=== PATIENT | female | born 1970 | race Caucasian/White ===

== ENCOUNTER 2018-11-28 09:36 | Inpatient (IN) ==
[2018-11-28] MEDS ORDERED: *HR* LORazepam 2 MG/ML VIAL ONE (09:46)
[2018-11-28] MEDS ORDERED: methylPREDNISolone 125 MG/2 ML VIAL IVP ONE (09:53)
[2018-11-28] MEDS ORDERED: Ipratropium/Albuterol Neb 3 ML IH ONE (09:53)
[2018-11-28] MEDS ORDERED: *HR* LORazepam 2 MG/ML VIAL IVP ONE (09:53)
--- NOTE | 2018-11-28 09:59 | Emergency Department Note ---
Disposition Clinical Impression: Acute exacerbation of chronic obstructive airways disease COPD (chronic obstructive pulmonary disease) Qualifiers: COPD type: COPD with acute exacerbation Qualified Code(s): J44.1 - Chronic obstructive pulmonary disease with (acute) exacerbation Disposition: Admitted As Inpatient Condition: Fair Time of Disposition: 13:37 SOB HPI - General Stated Complaint: KYLAH Time Seen by Provider: 11/28/18 09:41 Source: patient, EMS Mode of arrival: EMS Limitations: no limitations Nursing Notes Reviewed: Yes Vital Signs Reviewed: Yes - History of Present Illness Patient is a 48-year-old female that was recently admitted to a [facility] 11/23- 11/27/18 for COPD exacerbation, sent home with three more days of levaquin and home oxygen. She became acutely short of breath this morning and reports by EMS for her symptoms. When medics arrived at the house, she had just had an albuterol nebulizer and had some redness in her chest, so they gave 10mg IV decadrone and benadryl due to concern for allergic reaction to the albuterol. Pt looks dyspneic on exam, is tachypneic and using accessory muscle to breathe. She is able to speak in full sentences and is maintain saturation in low 90's. Pt was started on BiPAP and so history was abbreviated initially. After pt's arrived he explained that pt initially reported to [facility] on 11/23 with complaints of increasing SOB and fever. She was admitted for several days, but pt's reports that she never really got better. He reports that she had an albuterol nebulizer this morning and that's when she became acutely short of breath and he called the squad. He does report she was taking her home medications including 20mg steroids and levaquin but they do not appear to be helping. - Related Data Home Medications Medication Instructions Recorded Confirmed Montelukast [Singulair] 10 mg PO DAILY 06/06/16 11/28/18 Hydrochlorothiazide [Microzide] 12.5 mg PO DAILY 11/22/18 11/28/18 Albuterol Neb [Proventil Neb] 2.5 mg IH Q6H PRN 11/28/18 11/28/18 Temazepam [Restoril] 30 mg PO HS PRN 11/28/18 11/28/18 Tiotropium Br/Olodaterol HCl 2 puff IH DAILY 11/28/18 11/28/18 [Stiolto Respimat Inhal [place]] hydrOXYzine pamoate [HydrOXYzine 25 mg PO Q6H PRN 11/28/18 11/28/18 Pamoate] Previous Rx's Medication Instructions Recorded ALPRAZolam [Xanax 0.5 MG Tablet] 0.5 mg PO Q6H PRN 3 Days #12 tablet 11/27/18 Budesonide/Formoterol 160/4.5 2 puff IH BIDR #1 inh 11/27/18 [Symbicort 160/4.5] Lactobacillus [Culturelle] 1 each PO BID #6 cap.sprink 11/27/18 levoFLOXacin [Levaquin] 750 mg PO DAILY #3 tablet 11/27/18 predniSONE [PredniSONE] 10 mg PO BIDWM #6 tablet 11/27/18 Allergies Allergy/AdvReac Type Severity Reaction Status Date / Time No Known Allergies Allergy Verified 11/23/18 23:19 Review of Systems: All systems ED: reviewed and negative except as stated. Constitutional: Denies: fever, chills ENT ED: Denies: ear pain, Reports: throat pain, nasal congestion Cardiovascular: Denies: chest pain, palpitations Respiratory: Reports: cough, dyspnea Gastrointestinal: Denies: abdominal pain, nausea, vomiting, diarrhea, constipa tion Genitourinary: Denies: urgency, dysuria, frequency Musculoskeletal: Denies: back pain, neck pain Integumentary: Denies: rash, abrasion Neurological: Denies: weakness, numbness, paresthesias Reports: headache Psychiatric: Denies: anxiety, depression Endocrine: Denies: fatigue, heat or cold intolerance Hematological/Lymphatic: Denies: easy bleeding, easy bruising Allergic/Immunologic: Denies: facial swelling, urticaria Past Medical History - Past Medical History Medical history: Reports: COPD, hypertension, other Psychiatric history: Reports: no psych history 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 Well developed, well nourished. Able to converse in full sentences. Head: atraumatic, normocephalic. ENT: No conjunctival injection, no scleral icterus. PERRLA. EOMI. Oropharynx non- erythematous. mucous membranes tacky. Neuro: No focal deficits, no speech deficit, no facial droop, mentating well. BUE/BLE Str 5/5. Pulm: Lungs have diffuse wheezes in all lung trejo without evidence of consolidation, ronchi. Cardio: Tachycardia, no m/r/g evident on auscultation. Chest not tender to palpation. Abd: Soft, non-distended. Normoactive bowel sounds. Non-tender to palpation. No guarding. Non rigid. Extremities: Radial pulses 2+ crispin, dorsalis pedis/posterior tibialis 2+ crispin. No LE edema. No cyanosis, clubbing. Skin: warm, dry, intact. No rashes. Psych: Appropriate mood and affect. Answers questions appropriately. Cooperative with exam. - General Limitations: no limitations General appearance: alert Course Course Narrative: With pt's recent admission and discharge, it appears as if she has never had resolution of her symptoms and that today's incidence of SOB is a continuation of her disease process. Suspect admission for further treatment. Will obtain EKG, CXR, CBC, BMP, BNP. Will administer [address] pt on BiPAP to help with breathing. - Reevaluation(s) Reevaluation #1: After administration of 3 duonebs and pt had been on BiPAP, her heart rate had improved into 120s, respiratory rate had improve into high 20's and lung trejo sounded improved although she still had mild wheezes diffusely. Pt was still feeling dyspneic. Time: 10:47 Reevaluation #2: Hospitalist was concerned for PE, CTA chest was ordered and failed to demonstrate PE. Time: 13:36 Vital Signs Temperature 97.8 F 11/28/18 09:40 Pulse Rate 135 11/28/18 09:40 Respiratory Rate 24 11/28/18 09:40 Blood Pressure 192/121 11/28/18 09:40 O2 Sat by Pulse Oximetry 95 11/28/18 09:40 Temperature 97.8 F 11/28/18 09:40 Pulse Rate 124 11/28/18 12:20 Respiratory Rate 24 11/28/18 12:20 Blood Pressure 134/78 11/28/18 11:31 O2 Sat by Pulse Oximetry 99 11/28/18 12:20 Oxygen Delivery Oxygen Delivery Bipap Shortness of Breath/Dyspnea - [facility] Narrative Medical decision making narrative: Pt presented with acute development of shortness of breath. She was placed on bipap and given 3 duonebs. These improved her diffuse wheezing somewhat, but did not resolve it completely. She was less tachycardic in the 120's and was less tachypneic and had RR in the low 20's at time of disposition. She was admitted to hospitalist, Dr. Kwon, who agreed to accept her to his service. Pts respiratory status improved during the course of her ED treatment, although she continued to require BiPAP support. Patient was given an opportunity to ask questions at bedside and all of their concerns were addressed. Patient verbalized understanding and agreement with plan of care. Pt remained stable while in the department. - Medical Records Medical records reviewed: Yes I reviewed the patient's medical records. - Lab Data Lab results reviewed: Yes I reviewed the patient's lab results. Result diagrams: 11/28/18 10:16 11/28/18 10:16 Lab Results 11/28/18 11/28/18 11/28/18 Range/Units 10:16 10:16 10:16 WBC 8.7 (4.3-11.1) K/mcL RBC 4.77 (3.82-4.97) M/mcL Hgb 15.5 H (11.5-15.4) g/dL Hct 44.7 (35.3-44.9) % MCV 93.7 (83.0-100.0) fL MCH 32.5 (28.0-33.3) pg MCHC 34.7 (31.6-35.5) g/dL RDW 12.2 (11.5-14.5) % Plt Count 198 (140-400) K/mcL MPV 9.3 L (9.4-12.4) fL Immature Gran % 2.2 (0-4) % Seg Neutrophils % 80.1 % Lymphocytes % 10.8 % Monocytes % 6.2 % Eosinophils % 0.0 % Basophils % 0.7 % Neutrophils # 7.0 (1.6-8.9) K/mcL Lymphocytes # 0.9 (0.6-4.6) K/mcL Monocytes # 0.5 (0.0-1.3) K/mcL Eosinophils # 0.0 (0.0-0.6) K/mcL Basophils # 0.1 (0.0-0.2) K/mcL Sodium 140 (136-145) mEq/L Potassium 4.1 (3.5-5.1) mEq/L Chloride 102 (98-107) mEq/L Carbon Dioxide 32 H (23-29) mEq/L BUN 27 H (6-20) mg/dL Creatinine 0.67 (0.60-1.20) mg/dL Est GFR ( Amer) > 60 (> 60) Est GFR (Non-Af Amer) > 60 (> 60) BUN/Creatinine Ratio 40 H (6-26) Glucose 162 H (70-105) mg/dL Calculated Osmolality 299 (280-300) Lactic Acid 1.0 (0.5-2.2) mmol/L Calcium 9.2 (8.6-10.3) mg/dL Magnesium 2.5 (1.6-2.6) mg/dL Troponin I < 0.03 (< 0.04) ng/mL B-Natriuretic Peptide (Less than 100) pg/mL 11/28/18 Range/Units 10:16 WBC (4.3-11.1) K/mcL RBC (3.82-4.97) M/mcL Hgb (11.5-15.4) g/dL Hct (35.3-44.9) % MCV (83.0-100.0) fL MCH (28.0-33.3) pg MCHC (31.6-35.5) g/dL RDW (11.5-14.5) % Plt Count (140-400) K/mcL MPV (9.4-12.4) fL Immature Gran % (0-4) % Seg Neutrophils % % Lymphocytes % % Monocytes % % Eosinophils % % Basophils % % Neutrophils # (1.6-8.9) K/mcL Lymphocytes # (0.6-4.6) K/mcL Monocytes # (0.0-1.3) K/mcL Eosinophils # (0.0-0.6) K/mcL Basophils # (0.0-0.2) K/mcL Sodium (136-145) mEq/L Potassium (3.5-5.1) mEq/L Chloride (98-107) mEq/L Carbon Dioxide (23-29) mEq/L BUN (6-20) mg/dL Creatinine (0.60-1.20) mg/dL Est GFR ( Amer) (> 60) Est GFR (Non-Af Amer) (> 60) BUN/Creatinine Ratio (6-26) Glucose (70-105) mg/dL Calculated Osmolality (280-300) Lactic Acid (0.5-2.2) mmol/L Calcium (8.6-10.3) mg/dL Magnesium (1.6-2.6) mg/dL Troponin I (< 0.04) ng/mL B-Natriuretic Peptide 36 (Less than 100) pg/mL - Radiology Data Radiology results reviewed: Yes I reviewed the patient's radiology results. Chest X-Ray 11/28/18 09:53 IMPRESSION: Minimal left basilar atelectasis or pneumonitis. D/ / Elie Kohler MD / Elie Kohler MD Interpreting Provider: Elie Kohler MD - EKG Data EKG attestation: Yes I reviewed and interpreted this EKG. EKG results narrative: HR 126, rhythm sinus tachycardia, axis normal. MS 125, QRS 92, QTc 443. No evidence of ST elevation or depression. No evidence of LVH. Attestation Statement - Attestation Attestation: I, Augustus Mackenzie, examined this patient and my medical decision-making was reviewed with the HONING MACHINE SET UP OPERATOR/PA/Advanced Practice Nurse/Resident Physician. I agree with the documented findings, disposition and treatment plan as described except to the extent set forth below. 48-year-old female presents emergency Department with concerns of respiratory distress. Patient was recently admitted to [facility] where she was treated for 4 days for COPD exacerbation. Patient states she was discharged from the hospital yesterday but continued to have shortness of breath. Patient states she has had progressive worsening since that time. She denies fever, history of blood clot or DVT. No other recent trauma. Patient has wheezing the bilateral posterior lung trejo on exam. She is placed on BiPAP with DuoNeb immediately after initial evaluation with significant improvement. CTA of the chest did not show evidence of acute PE. Patient will be admitted to the hospitalist for further care and evaluation.
[2018-11-28 10:32] LABS: Basophils # 0.1 K/mcL (0.0-0.2); Basophils % 0.7 %; Hematocrit 44.7 % (35.3-44.9); Hemoglobin 15.5 g/dL (11.5-15.4); Immature Granulocytes % 2.2 % (0-4); Lymphocytes # 0.9 K/mcL (0.6-4.6); Lymphocytes % 10.8 %; Mean Corpuscular HGB Conc 34.7 g/dL (31.6-35.5); Mean Corpuscular Hemoglobin 32.5 pg (28.0-33.3); Mean Corpuscular Volume 93.7 fL (83.0-100.0); Mean Platelet Volume 9.3 fL (9.4-12.4); Monocytes # 0.5 K/mcL (0.0-1.3); Monocytes % 6.2 %; Platelet Count 198 K/mcL (140-400); Red Blood Count 4.77 M/mcL (3.82-4.97); Red Cell Distribution Width 12.2 % (11.5-14.5); Segmented Neutrophils % 80.1 %
[2018-11-28 10:49] LABS: BUN/Creatinine Ratio 40 (6-26); Blood Urea Nitrogen 27 mg/dL (6-20); Calcium 9.2 mg/dL (8.6-10.3); Carbon Dioxide 32 mEq/L (23-29); Chloride 102 mEq/L (98-107); Glucose 162 mg/dL (70-105); Osmolality,Calculated 299 (280-300); Potassium 4.1 mEq/L (3.5-5.1); Sodium 140 mEq/L (136-145); Troponin I < 0.03 ng/mL (< 0.04); eGFR For Non-African Americans > 60 (> 60)
[2018-11-28] MEDS ORDERED: Isovue-370 500 ML BOTTLE IVP ONE (11:33)
--- NOTE | 2018-11-28 12:03 | Internal Med History&Physical ---
Date of Encounter: 11/28/18 Time of Encounter: 11:56 Internal Medicine - H&P: HPI Chief complaint: SOB Admitted From: Emergency Dept History of present illness: Cecy Hernandez is a 48 F w hx smoker, COPD on 2L, HTN, DM2, low TSH, who p/w SOB. Pt states she was hospitalized for the last 4 days at [facility] and was discharged yesterday. She says her symptoms never really improved other than the fevers she reported prior to admission there on 11/24. She's been unable to catch her breath and coughing up more sputum which is now yellow. She says her WBC at [facility] was elevated, and as it improved, and her O2 sats were stable on 2L, she was discharged despite still being symptomatic. However, she tried to rest/recover at home but was unable to feel any better, unable to eat/drink due to feeling too short of breath, and actually felt too ill to smoke cigarettes, of which she usually smokes 1-1.5 packs daily. She denies any chest pain and says her sy mptoms were slowly progressive over a few days, not sudden onset. Review of records indicates that patient hospitalized from 11/24-11/27 at [facility] for presumed COPD exacerbation. No etiology identified as CXR w/o acute process. Pt given nebs, steroids, and levaquin with improvement in symptoms, and d ischarged on home O2. Additionally, it appears she was diagnosed with DM2 while inpatient for an A1c of 8%, her TSH was suppressed to 0.17 but FT3/FT4 were wnl, and she was discharged with Xanax #12 tabs for anxiety. In the ED, pt HR 130s and with increased respiratory effort but talking in full sentences, placed on BiPAP with improvement in symptoms. Given Nebs, Solumedrol, and Ativan, and admitted. Past medical, surgical, social, and family histories reviewed and updated as below, with addition of Family History which is negative for COPD or lung cancer. Past Med Surg Social Fam HX - Past Medical History Medical history: COPD, hypertension, other Additional medical history: BOARDERLINE DM, WEARS HOME 02 AT 2LPM [place]IA [place] Psychiatric history: no psych history - Past Surgical History Additional surgical history: Tubal ligation - Social History Smoking Status: Current every day smoker Smokeless Tobacco Status: No Alcohol use: none Drug use: none Internal Medicine - H&P: Meds Montelukast [Singulair] 10 mg PO DAILY 06/06/16 [History] Hydrochlorothiazide [Microzide] 12.5 mg PO DAILY 11/22/18 [History] ALPRAZolam [Xanax 0.5 MG Tablet] 0.5 mg PO Q6H PRN 3 Days #12 tablet 11/27/18 [Rx] Budesonide/Formoterol 160/4.5 [Symbicort 160/4.5] 2 puff IH BIDR #1 inh 11/27/18 [Rx] Lactobacillus [Culturelle] 1 each PO BID #6 cap.sprink 11/27/18 [Rx] levoFLOXacin [Levaquin] 750 mg PO DAILY #3 tablet 11/27/18 [Rx] predniSONE [PredniSONE] 10 mg PO BIDWM #6 tablet 11/27/18 [Rx] Albuterol Neb [Proventil Neb] 2.5 mg IH Q6H PRN 11/28/18 [History] Temazepam [Restoril] 30 mg PO HS PRN 11/28/18 [History] Tiotropium Br/Olodaterol HCl [Stiolto Respimat Inhal [place]] 2 puff IH DAILY 11/28/18 [History] hydrOXYzine pamoate [HydrOXYzine Pamoate] 25 mg PO Q6H PRN 11/28/18 [History] Allergy/AdvReac Type Severity Reaction Status Date / Time No Known Allergies Allergy Verified 11/23/18 23:19 All Systems PM: A 10-system review of systems was performed and is negative for pertinent findings except as documented above in the HPI. - Constitutional Vitals: Temp Pulse Resp BP Pulse Ox 97.8 F 113 24 134/78 100 11/28/18 09:40 11/28/18 11:31 11/28/18 11:31 11/28/18 11:31 11/28/18 11:31 Exam: General: NAD, good eye contact, relatively well appearing and not working to breath although is currently on bipap Head: Atraumatic, normocephalic. Face symmetric Eyes: EOMI, sclerae anicteric ENT: Mucous membranes moist. Normal oral mucosa and dentition. Trachea midline. Thoracic: No visible chest wall deformities. Does have prolonged expiratory phase with diminished air movement, diffuse expiratory wheezing on forced exhalation Cardio: Normal S1 and S2, regular rhythm, tachycardiac, no murmurs. Abdomen: Soft, nontender, nondistended. Extremities: Warm, well perfused. DP pulses 2+ b/l. No clubbing, cyanosis. No edema Skin: Intact. No rashes, bruises, or ulcers Neuro: Awake, fully oriented. Good memory, concentration, attention. Speech fl uent. CN II-XII grossly intact. Strength 5/5 in b/l UE and LE Internal Med - H&P Results - Labs CBC & Chem 7: 11/28/18 10:16 11/28/18 10:16 Labs: Short CBC 11/28/18 Range/Units 10:16 WBC 8.7 (4.3-11.1) K/mcL Hgb 15.5 H (11.5-15.4) g/dL Hct 44.7 (35.3-44.9) % Plt Count 198 (140-400) K/mcL Neutrophils # 7.0 (1.6-8.9) K/mcL BMP 11/28/18 10:16 Sodium 140 Potassium 4.1 Chloride 102 Carbon Dioxide 32 H BUN 27 H Creatinine 0.67 Glucose 162 H Calcium 9.2 Cardiac Enzymes 11/28/18 Range/Units 10:16 Troponin I < 0.03 (< 0.04) ng/mL - Impressions ITS Impressions Chest X-Ray 11/28/18 09:53 IMPRESSION: Minimal left basilar atelectasis or pneumonitis. D/ / Elie Kohler MD / Elie Kohler MD Interpreting Provider: Elie Kohler MD - Summary of Assessment and Plan Summary of Assessment and Plan: Cecy Hernandez is a 48 F w hx smoker, COPD on 2L, HTN, DM2, low TSH, who p/w SOB and cough, tachycardia, recent COPD exacerbation requiring hospitalization, concerning for ongoing COPD exacerbation. COPD in acute exacerbation: unknown etiology, CXR w mild L basilar atelectasis - CTA to r/o PE given unknown etiology of COPD exacerbation in context of recent hospitalization - RVP - nebs q4h&prn - prednisone 40 daily x5d, s/p solumedrol 125 in ED - continue levaquin 750 po daily, last dose 11/30 - home inhalers Acute on chronic hypoxic respiratory failure: requiring 4L O2 to maintain sats >88% and then briefly BiPAP for work of breathing - supplemental O2, wean as able - IS - walk test prior to discharge Chronic respiratory acidosis: likely 2/2 COPD as above, will monitor Azotemia: persistent on all labs in 11/2018 and back in 07/2018, noted, will monitor Erythrocytosis: 2/2 smoker, will monitor DM2: will initiate metformin 500 bid tomorrow (CTA today as above) HTN: tomorrow resume home hctz 12.5 Smoker: nicotine patch offered Low TSH: FT3/FT4 wnl noted Anxiety: no benzos while inpatient or upon discharge PPx: lovenox FEN: regular, no MIVF Lines: PIV Consults: Code: Full Dispo: patient requires inpatient eval and management at this time. Anticipate 2-3 days. Will be homegoing
[2018-11-28] MEDS ORDERED: Nicotine 21 MG PATCH.TD24 TD PRN (12:09)
[2018-11-28] MEDS ORDERED: Ipratropium/Albuterol Neb 3 ML IH PRN (12:17)
[2018-11-28] MEDS ORDERED: Naloxone 0.4 MG/ML INJ IVP PRN (12:18)
[2018-11-28] MEDS ORDERED: Ondansetron 4 MG/2 ML VIAL IVP PRN (12:18)
[2018-11-28] MEDS ORDERED: Acetaminophen 325 MG TABLET PO PRN (12:18)
[2018-11-28 12:39] LABS: Magnesium 2.5 mg/dL (1.6-2.6)
[2018-11-28] MEDS: Ipratropium/Albuterol Neb 3 ML IH SCH ×3 (16:19→23:50)
[2018-11-28] MEDS: Budesonide/Formoterol 160/4.5 1 PUFF INH IH SCH (20:14)
[2018-11-28 21:40] LABS: Adenovirus Not Detected (Not Detect); Bordetella Pertussis Not Detected (Not Detect); Chlamydophila pneumoniae Not Detected (Not Detect); Coronavirus 229E Not Detected (Not Detect); Coronavirus HKU1 Not Detected (Not Detect); Coronavirus NL63 Not Detected (Not Detect); Coronavirus OC43 Not Detected (Not Detect); Human Metapneumovirus DETECTED (Not Detect); Human Rhinovirus/Enterovirus Not Detected (Not Detect); Influenza A Subtype 2009 H1 Not Detected (Not Detect); Influenza A Untypeable Not Detected (Not Detect); Influenza B Not Detected (Not Detect); Mycoplasma pneumoniae Not Detected (Not Detect); Parainfluenza Virus 1 Not Detected (Not Detect); Parainfluenza Virus 2 Not Detected (Not Detect); Parainfluenza Virus 3 Not Detected (Not Detect); Parainfluenza Virus 4 Not Detected (Not Detect); Respiratory Syncytial Virus Not Detected (Not Detect)
[2018-11-29] MEDS: Ipratropium/Albuterol Neb 3 ML IH SCH ×6 (03:57→23:38)
[2018-11-29] MEDS: *HR* Enoxaparin 40 MG/0.4 ML SYRINGE SQ SCH (05:14)
[2018-11-29] MEDS: Budesonide/Formoterol 160/4.5 1 PUFF INH IH SCH ×2 (07:23→19:36)
[2018-11-29] MEDS: hydroCHLOROthiazide 25 MG TABLET PO SCH (08:25)
[2018-11-29] MEDS ORDERED: levoFLOXacin 750 MG TABLET PO SCH (09:00)
[2018-11-29] MEDS ORDERED: predniSONE 20 MG TABLET PO SCH (09:00)
[2018-11-29 10:06] LABS: Hematocrit 42.7 % (35.3-44.9); Hemoglobin 14.2 g/dL (11.5-15.4); Mean Corpuscular HGB Conc 33.3 g/dL (31.6-35.5); Mean Corpuscular Hemoglobin 32.1 pg (28.0-33.3); Mean Corpuscular Volume 96.4 fL (83.0-100.0); Mean Platelet Volume 9.3 fL (9.4-12.4); Platelet Count 184 K/mcL (140-400); Red Blood Count 4.43 M/mcL (3.82-4.97); Red Cell Distribution Width 12.1 % (11.5-14.5)
[2018-11-29 10:15] LABS: BUN/Creatinine Ratio 49 (6-26); Blood Urea Nitrogen 35 mg/dL (6-20); Calcium 8.8 mg/dL (8.6-10.3); Carbon Dioxide 34 mEq/L (23-29); Chloride 102 mEq/L (98-107); Glucose 92 mg/dL (70-105); Magnesium 2.5 mg/dL (1.6-2.6); Osmolality,Calculated 300 (280-300); Potassium 3.7 mEq/L (3.5-5.1); Sodium 141 mEq/L (136-145); eGFR For Non-African Americans > 60 (> 60)
[2018-11-29] MEDS ORDERED: ALPRAZolam 0.5 MG TABLET PO PRN (12:07)
[2018-11-29] MEDS ORDERED: D5% in Water 1,000 ML IVC PRN (12:07)
[2018-11-29] MEDS ORDERED: Temazepam 15 MG CAPSULE PO PRN (12:07)
[2018-11-29] MEDS ORDERED: Dextrose Gel 15 GM/37.5 ML TUBE PO PRN ×2 (12:07)
[2018-11-29] MEDS ORDERED: *HR* Dextrose 50 % in Water (Syg) 50 ML SYRINGE IVP PRN (12:07)
--- NOTE | 2018-11-29 12:57 | Internal Med Progress Note ---
Hospitalist Progress Note - Encounter Date of Encounter: 11/29/18 Time of Encounter: 12:54 - Subjective Interval History: Patient is still significant dyspneic even on rest using accessory muscle. Oxygen 4 L by nasal cannula. Review the lab at bedside Denies fever chills nausea vomiting headache dizziness chest pain abdominal pain urinary bowel complaint - Exam Vitals: Temp Pulse Resp BP Pulse Ox 96.5 F L 92 18 133/93 98 11/29/18 11:16 11/29/18 11:16 11/29/18 11:16 11/29/18 11:16 11/29/18 11:16 Exam: General appearance: No acute distress but using accessory muscle and get out of breath while completing a sentence. Her liters oxygen by nasal cannula Head exam: Atraumatic Eye exam: EOMI, PERRLA ENT exam: Moist oral mucosa Neck nontender, supple Respiratory exam: Venous breath sounds bilaterally with few scattered rhonchi Cardiovascular exam: Regular rate and rhythm, no systolic murmur Abdominal exam: Soft, nontender, nondistended, positive bowel sounds Extremities exam: No calf tenderness, no pedal edema Present: Skin-no rash, warm, dry, intact Neurological exam: Alert, awake, oriented 3, CN II-XII intact, no focal defic its. No facial droop. - Summary of Assessment and Plan Summary of Assessment and Plan: Cecy Hernandez is a 48 F w hx smoker, COPD on 2L, HTN, DM2, low TSH, who p/w SOB and cough, tachycardia, recent COPD exacerbation requiring hospitalization, concerning for ongoing COPD exacerbation. COPD in acute exacerbation: unknown etiology, CXR w mild L basilar atelectasis - CTA to r/o PE given unknown etiology of COPD exacerbation in context of recent hospitalization. Patient has history of COPD on 2 L oxygen is recently started 6 mental ago. Has been in [facility] for COPD treatment for 4 days recently but returned back to ER immediately after discharge. Patient is still has significant respiratory difficulty. IV steroid 40 mg IV every 6 hours along with continuation of DuoNeb started. Continue Levaquin. A spirometry oxygen supplementation. Consulted emergency medical technician as patient never had evaluation. Acute on chronic hypoxic respiratory failure: requiring 4L O2 to maintain sats >88% and then briefly BiPAP for work of breathing - Most likely due to above. CTA ruled out PE. BNP ordered. Will also consider echo if any concern. Does not appear in volume overload. - walk test prior to discharge Chronic respiratory acidosis: likely 2/2 COPD as above, will monitor Azotemia: Slight increase the urine. Also appear slightly dehydrated therefore advised to drink plenty of water. She may need gentle hydration by IV fluid. Continue I&O's. Monitor BMP. Erythrocytosis: 2/2 smoker, will monitor DM2: will hold metformin in the setting of acute illness. Sliding scale insulin low with Accu-Chek is started. Diabetic diet. HTN: Well-controlled blood pressure. Patient appears slight hydrated therefore will hold hydrochlorothiazide at this time. Smoker: nicotine patch offered but patient refused. Smoking cessation education given. Patient is willing to talk with her PCP about stopping his smoking on OPD basis Low TSH: FT3/FT4 wnl noted Anxiety: Stable at this time. DVT prophylaxis: lovenox - Time Spent with Patient Total time spent is greater than 50% in coordination of care (as documented) at patient's floor/unit and/or counseling patient: 25 - 35 minutes Plan of Care Discussed with: patient Internal Medicine: Result - Labs CBC & Chem 7: 11/29/18 04:00 11/29/18 04:00 Labs: Short CBC 11/29/18 Range/Units 04:00 WBC 7.9 (4.3-11.1) K/mcL Hgb 14.2 (11.5-15.4) g/dL Hct 42.7 (35.3-44.9) % Plt Count 184 (140-400) K/mcL BMP 11/29/18 04:00 Sodium 141 Potassium 3.7 Chloride 102 Carbon Dioxide 34 H BUN 35 H Creatinine 0.71 Glucose 92 Calcium 8.8 - Impressions Impressions Chest CTA 11/28/18 11:33 IMPRESSION: No pulmonary embolism or acute pulmonary abnormality. Hepatic steatosis. Left ventricular hypertrophy. D/ / Noam Santiago MD / Noam Santiago MD Interpreting Provider: Noam Santiago MD Consult Discharge Plan - Plan Referrals: Shlomo Rosado MD [Primary Care Provider] -
[2018-11-29 13:33] LABS: Estimated Average Glucose 192 mg/dl; Hemoglobin A1C 8.3 %
[2018-11-29 15:36] LABS: ABG Base Excess 8 mEq/L (-2 to 3); ABG HCO3 34 mEq/L (21-27); ABG Oxygen Saturation 96 % (95-98); ABG PCO2 49 mmHg (35-45); ABG PH 7.45 pH Units (7.32-7.45); ABG PO2 79 mmHg (85-104); ABG TCO2 36 mEq/L (20-26)
[2018-11-29] MEDS: *HR* Metformin 500 MG TABLET PO SCH (15:43)
[2018-11-29] MEDS: 0.9 % Sodium Chloride 1,000 ML IVC SCH (15:44)
--- NOTE | 2018-11-29 16:38 | Electrocardiograph Report ---
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
[2018-11-29] MEDS: MethylPREDNISolone 40 MG/ML VIAL IVP SCH ×2 (16:39→23:53)
[2018-11-29] MEDS: Insulin LISPRO 300 UNITS/3 ML VIAL SQ SCH (16:44)
--- NOTE | 2018-11-29 17:01 | Pulmonology Consult Note ---
Date of Encounter: 11/29/18 Time of Encounter: 15:00 Assessment and Plan (1) Acute exacerbation of chronic obstructive airways disease Current Visit: Yes Status: Acute This patient has been admitted for worsening of shortness of breath and there is no evidence of any significant pneumonia I suspect this is her underlying COPD with an exacerbation which is being treated appropriately and on top of that with the infection her condition has deteriorated more. I have explained to the patient and her family at the bedside that it might take a few weeks for her to recover feels she will be back to her baseline and she needs to quit smoking and she understand that and . She understand she should not smoke tobacco again. As outpatient she will need a workup. She has completed her course of antibiotics and that can be stopped. If oxygen and systemic steroid as well as bronchodilator can be arranged for her at home, I believe she was should be able to be discharged home and can follow-up as outpatient. . She will need to check A1AT when she is more stable as outpatient. I don't think she is on appropriate mixture of inhalers as outpatient and she can follow up as outpatient to make sure to work on the treatment and compliance Thank you for consultation and please call for any questions. History of Present Illness Consult date: 11/29/18 Requesting physician: Gina Oates Reason for consult: dyspnea, pneumonia Chief complaint: Shortness of breath History of present illness: This is a pleasant 48 year old female with significant history of smoking tobacco and she stated she will not smoke again. Patient stated she had worsening of her dyspnea for few days and she was at [place] and she stated she didn't feel any better and she feels she has more dyspnea, productive cough and wheezing. She is actually asking when she can go home. She stated she use O2 for her COPD and she has significant smoking history and she smokes at least 1 ppd. She stated she has not seen a injection molder and she has been on multiple inhalers. She has been treated with NIV and she is doing better. She doesn't remember when she had PFT done. Past Med Surg Social Fam HX - Past Medical History Medical history: COPD, hypertension, other Additional medical history: LEILA DM, WEARS HOME 02 AT 2LPM V[place] Psychiatric history: no psych history - Past Surgical History Surgical History: cholecystectomy Additional surgical history: Tubal ligation - Social History Smoking Status: Current every day smoker Packs per day: 1.5 Smokeless Tobacco Status: No Alcohol use: none Drug use: none Medications and Allergies Montelukast [Singulair] 10 mg PO DAILY 06/06/16 [History] Hydrochlorothiazide [Microzide] 12.5 mg PO DAILY 11/22/18 [History] ALPRAZolam [Xanax 0.5 MG Tablet] 0.5 mg PO Q6H PRN 3 Days #12 tablet 11/27/18 [Rx] Budesonide/Formoterol 160/4.5 [Symbicort 160/4.5] 2 puff IH BIDR #1 inh 11/27/18 [Rx] Lactobacillus [Culturelle] 1 each PO BID #6 cap.sprink 11/27/18 [Rx] levoFLOXacin [Levaquin] 750 mg PO DAILY #3 tablet 11/27/18 [Rx] predniSONE [PredniSONE] 10 mg PO BIDWM #6 tablet 11/27/18 [Rx] Albuterol Neb [Proventil Neb] 2.5 mg IH Q6H PRN 11/28/18 [History] Temazepam [Restoril] 30 mg PO HS PRN 11/28/18 [History] Tiotropium Br/Olodaterol HCl [Stiolto Respimat Inhal [place]] 2 puff IH DAILY 11/28/18 [History] hydrOXYzine pamoate [HydrOXYzine Pamoate] 25 mg PO Q6H PRN 11/28/18 [History] Allergy/AdvReac Type Severity Reaction Status Date / Time No Known Allergies Allergy Verified 11/23/18 23:19 All Systems: The remainder of the systems were reviewed and are negative Physical Examination Vital Signs: Vital Signs, Last 4 Hours Temp Pulse Resp BP Pulse Ox 11/29/18 16:48 97.7 F 97 18 127/92 97 11/29/18 15:35 18 96 General appearance: no acute distress Eyes: nonicteric ENT: oropharynx moist Neck: supple Effort: mildly labored Auscultation: bilateral: rhonchi Percussion: bilateral: not dull Tactile fremitus: bilateral: normal Cardiovascular: regular rate and rhythm Gastrointestinal: normoactive bowel sounds, non-distended Extremities: no cyanosis, edema normal mental status, non-focal exam depressed Results - Laboratory Findings CBC and BMP: 11/29/18 04:00 11/29/18 04:00 ABG ABG pH 7.45 pH Units (7.32-7.45) 11/29/18 15:33 ABG pCO2 49 mmHg (35-45) H 11/29/18 15:33 ABG pO2 79 mmHg (85-104) L 11/29/18 15:33 ABG O2 Saturation 96 % (95-98) 11/29/18 15:33 Abnormal lab findings: Abnormal lab results MPV 9.3 fL (9.4-12.4) L 11/29/18 04:00 ABG pCO2 49 mmHg (35-45) H 11/29/18 15:33 ABG pO2 79 mmHg (85-104) L 11/29/18 15:33 ABG HCO3 34 mEq/L (21-27) H 11/29/18 15:33 ABG Total CO2 36 mEq/L (20-26) H 11/29/18 15:33 ABG Base Excess 8 mEq/L (-2 to 3) H 11/29/18 15:33 Carbon Dioxide 34 mEq/L (23-29) H 11/29/18 04:00 BUN 35 mg/dL (6-20) H 11/29/18 04:00 BUN/Creatinine Ratio 49 (6-26) H 11/29/18 04:00 Hemoglobin A1c 8.3 % (-5.6) H 11/29/18 Unknown Human Metapneumovir PCR DETECTED (Not Detect) A 11/28/18 19:50 - Diagnostic Findings CT scan - chest: report reviewed, image reviewed - Clinical Findings Intake & Output: Intake & Output 11/29/18 11/29/18 11/29/18 07:59 15:59 23:59 Intake Total 480 / 480 Output Total 900 / 900 Balance -420 / -420 Weight 70.2 kg Consult Discharge Plan - Plan Referrals: Shlomo Rosado MD [Primary Care Provider] - 12/10/18 9:30 am
[2018-11-29] MEDS: Lactobacillus 1 EACH CAP.SPRINK PO SCH (20:10)
[2018-11-30] MEDS: Ipratropium/Albuterol Neb 3 ML IH SCH ×6 (03:47→23:52)
[2018-11-30] MEDS: MethylPREDNISolone 40 MG/ML VIAL IVP SCH ×3 (04:29→20:05)
[2018-11-30] MEDS: *HR* Enoxaparin 40 MG/0.4 ML SYRINGE SQ SCH (04:29)
[2018-11-30] MEDS: 0.9 % Sodium Chloride 1,000 ML IVC SCH (04:30)
[2018-11-30 06:44] LABS: Basophils % 0.4 %; Hematocrit 44.6 % (35.3-44.9); Hemoglobin 15.2 g/dL (11.5-15.4); Lymphocytes # 0.4 K/mcL (0.6-4.6); Lymphocytes % 4.1 %; Mean Corpuscular HGB Conc 34.1 g/dL (31.6-35.5); Mean Corpuscular Hemoglobin 32.2 pg (28.0-33.3); Mean Corpuscular Volume 94.5 fL (83.0-100.0); Mean Platelet Volume 9.3 fL (9.4-12.4); Monocytes # 0.2 K/mcL (0.0-1.3); Monocytes % 2.1 %; Neutrophils # 7.8 K/mcL (1.6-8.9); Platelet Count 210 K/mcL (140-400); Red Blood Count 4.72 M/mcL (3.82-4.97); Red Cell Distribution Width 11.9 % (11.5-14.5); Segmented Neutrophils % 91.4 %
[2018-11-30 07:02] LABS: BUN/Creatinine Ratio 45 (6-26); Blood Urea Nitrogen 27 mg/dL (6-20); Carbon Dioxide 29 mEq/L (23-29); Chloride 103 mEq/L (98-107); Glucose 137 mg/dL (70-105); Osmolality,Calculated 291 (280-300); Potassium 4.4 mEq/L (3.5-5.1); Sodium 137 mEq/L (136-145); eGFR For Non-African Americans > 60 (> 60)
[2018-11-30] MEDS: Budesonide/Formoterol 160/4.5 1 PUFF INH IH SCH ×2 (07:46→19:49)
[2018-11-30] MEDS: Insulin LISPRO 300 UNITS/3 ML VIAL SQ SCH ×3 (07:55→17:49)
[2018-11-30] MEDS: hydroCHLOROthiazide 25 MG TABLET PO SCH (07:55)
[2018-11-30] MEDS: Lactobacillus 1 EACH CAP.SPRINK PO SCH ×2 (07:56→20:05)
[2018-11-30] MEDS: *HR* Metformin 500 MG TABLET PO SCH (07:56)
--- NOTE | 2018-11-30 11:02 | Internal Med Progress Note ---
Hospitalist Progress Note - Encounter Date of Encounter: 11/30/18 Time of Encounter: 09:55 - Subjective Interval History: Pt seen and examined with family present at bedside. Pt currently saturating well on 2L [place], and reports of feeling significantly better since her hospitalization She denies any headache, dizziness, chest pain at this time. Denies any cough Reported of being an every day smoker and extensive smoking cessation counseling has been provided. Ten point ROS is negative except as listed above No overnight events reported. Pt encouraged to get out of bed to chair and increase activity as tolerated. - Exam Vitals: Temp Pulse Resp BP Pulse Ox 98.1 F 107 18 142/92 94 11/30/18 07:27 11/30/18 08:09 11/30/18 07:27 11/30/18 07:27 11/30/18 07:27 Exam: General: No acute distress, AAO x 3 HEENT: EOMI,PERRLA, NC/AT, no scleral icterus, moist oral mucosa Respiratory: Decreased air entry bilaterally, no wheezing, no rales Cardiovascular: Regular, Rate, Rhythm, No murmurs GI: Soft, Non tender, non distended, normal bowel sounds Ext: No edema, no tenderness, positive pulses Neuro: AAO x 3, no focal deficits - Summary of Assessment and Plan Summary of Assessment and Plan: Cecy Hernandez is a 48 F with PMH of COPD on 2L, tobacco abuse, HTN, DM2, low TSH, who presented with SOB and cough, tachycardia, recent COPD exacerbation requiring hospitalization, concerning for ongoing COPD exacerbation. 1. Acute on chronic respiratory failure with hypoxia secondary to COPD exacerbation Pulmonary evaluation appreciated continue bronchodilator support Solumedrol 40mg IV q8h finished 7 days of abx therapy current exacerbation likely secondary to human metapneumovirus O2 supplementation smoking cessation advised will closely monitor respiratory status 2. DM type 2 holding oral antihyperglycemic agents at this time sliding scale insulin algorithm as needed monitor FS and BG ADA diet 3. Tobacco abuse smoking cessation counseling provided pt refused nicotine supplementation at this time DVT ppx: Lovenox SQ Co-morbidities: Low TSH(outpatient follow up recommended), HTN, anxiety will continue home medications Care plan discussed with patient/RN/Family/pharmacist/case management - Time Spent with Patient Total time spent is greater than 50% in coordination of care (as documented) at patient's floor/unit and/or counseling patient: Internal Medicine: Result - Labs CBC & Chem 7: 11/30/18 06:24 11/30/18 06:24 Labs: Short CBC 11/30/18 Range/Units 06:24 WBC 8.5 (4.3-11.1) K/mcL Hgb 15.2 (11.5-15.4) g/dL Hct 44.6 (35.3-44.9) % Plt Count 210 (140-400) K/mcL Neutrophils # 7.8 (1.6-8.9) K/mcL BMP 11/30/18 06:24 Sodium 137 Potassium 4.4 Chloride 103 Carbon Dioxide 29 BUN 27 H Creatinine 0.60 Glucose 137 H Calcium 9.0 - ABG Interpretation ABG results: ABG ABG pH 7.45 pH Units (7.32-7.45) 11/29/18 15:33 ABG pCO2 49 mmHg (35-45) H 11/29/18 15:33 ABG pO2 79 mmHg (85-104) L 11/29/18 15:33 ABG O2 Saturation 96 % (95-98) 11/29/18 15:33 Consult Discharge Plan - Plan Referrals: Shlomo Rosado MD [Primary Care Provider] - 12/10/18 9:30 am
[2018-11-30] MEDS ORDERED: hydrOXYzine pamoate 25 MG CAPSULE PO PRN (11:04)
[2018-12-01] MEDS: Ipratropium/Albuterol Neb 3 ML IH SCH ×5 (04:19→20:33)
[2018-12-01] MEDS: *HR* Enoxaparin 40 MG/0.4 ML SYRINGE SQ SCH (04:44)
[2018-12-01] MEDS: MethylPREDNISolone 40 MG/ML VIAL IVP SCH (04:44)
[2018-12-01 05:38] LABS: Basophils % 0.3 %; Hematocrit 45.6 % (35.3-44.9); Hemoglobin 15.4 g/dL (11.5-15.4); Lymphocytes % 9.5 %; Mean Corpuscular HGB Conc 33.8 g/dL (31.6-35.5); Mean Corpuscular Volume 94.8 fL (83.0-100.0); Mean Platelet Volume 9.5 fL (9.4-12.4); Monocytes # 0.6 K/mcL (0.0-1.3); Monocytes % 5.6 %; Neutrophils # 8.4 K/mcL (1.6-8.9); Platelet Count 202 K/mcL (140-400); Red Blood Count 4.81 M/mcL (3.82-4.97); Segmented Neutrophils % 82.6 %
[2018-12-01 05:59] LABS: BUN/Creatinine Ratio 43 (6-26); Blood Urea Nitrogen 30 mg/dL (6-20); Calcium 9.1 mg/dL (8.6-10.3); Carbon Dioxide 31 mEq/L (23-29); Chloride 101 mEq/L (98-107); Glucose 125 mg/dL (70-105); Magnesium 2.2 mg/dL (1.6-2.6); Osmolality,Calculated 296 (280-300); Phosphorous 4.3 mg/dL (2.7-4.5); Potassium 3.9 mEq/L (3.5-5.1); Sodium 139 mEq/L (136-145); eGFR For Non-African Americans > 60 (> 60)
[2018-12-01] MEDS: Budesonide/Formoterol 160/4.5 1 PUFF INH IH SCH ×2 (07:22→20:33)
[2018-12-01] MEDS ORDERED: Albuterol 2.5 MG/3 ML NEBULIZER IH PRN (07:29)
[2018-12-01] MEDS: Insulin LISPRO 300 UNITS/3 ML VIAL SQ SCH ×3 (07:34→17:13)
[2018-12-01] MEDS ORDERED: MethylPREDNISolone 40 MG/ML VIAL IVP SCH ×2 (08:00→18:00)
[2018-12-01] MEDS: Lactobacillus 1 EACH CAP.SPRINK PO SCH ×2 (08:06→21:05)
[2018-12-01] MEDS: hydroCHLOROthiazide 25 MG TABLET PO SCH (08:07)
--- NOTE | 2018-12-01 12:10 | Internal Med Progress Note ---
Hospitalist Progress Note - Encounter Date of Encounter: 12/01/18 Time of Encounter: 12:08 - Subjective Interval History: Pt seen and examined earlier this morning. Family present at bedside. Pt reports of feeling significantly better since hospitalization. Currently saturating well on 2L [place], which is her home oxygen level. She denies any cough. Will titrate down steroid therapy. Pt encouraged to ambulate and increase activity as tolerated. Given this being pt's readmission within one week, will continue with a slow steroid taper. Ten point ROS is negative except as listed above. - Exam Vitals: Temp Pulse Resp BP Pulse Ox 98.3 F 98 18 111/76 94 12/01/18 10:56 12/01/18 10:56 12/01/18 11:15 12/01/18 10:56 12/01/18 11:15 Exam: General: No acute distress, AAO x 3 HEENT: EOMI,PERRLA, NC/AT, no scleral icterus, moist oral mucosa Respiratory: Decreased air entry bilaterally, no wheezing, no rales Cardiovascular: Regular, Rate, Rhythm, No murmurs GI: Soft, Non tender, non distended, normal bowel sounds Ext: No edema, no tenderness, positive pulses Neuro: AAO x 3, no focal deficits - Summary of Assessment and Plan Summary of Assessment and Plan: Cecy Hernandez is a 48 F with PMH of COPD on 2L, tobacco abuse, HTN, DM2, low TSH, who presented with SOB and cough, tachycardia, recent COPD exacerbation requiring hospitalization, concerning for ongoing COPD exacerbation. 1. Acute on chronic respiratory failure with hypoxia secondary to COPD exacerbation Pulmonary evaluation appreciated continue bronchodilator support Solumedrol 40mg IV q12h will start Prednisone 40mg PO qdaily in am finished 7 days of abx therapy current exacerbation likely secondary to human metapneumovirus O2 supplementation smoking cessation advised will closely monitor respiratory status 2. DM type 2 holding oral antihyperglycemic agents at this time sliding scale insulin algorithm as needed monitor FS and BG ADA diet 3. Tobacco abuse smoking cessation counseling provided pt refused nicotine supplementation at this time DVT ppx: Lovenox SQ Co-morbidities: Low TSH(outpatient follow up recommended), HTN, anxiety will continue home medications Care plan discussed with patient/RN/Family/pharmacist/case management - Time Spent with Patient Total time spent is greater than 50% in coordination of care (as documented) at patient's floor/unit and/or counseling patient: 25 - 35 minutes Internal Medicine: Result - Labs CBC & Chem 7: 12/01/18 04:22 12/01/18 04:22 Labs: Short CBC 12/01/18 Range/Units 04:22 WBC 10.2 (4.3-11.1) K/mcL Hgb 15.4 (11.5-15.4) g/dL Hct 45.6 H (35.3-44.9) % Plt Count 202 (140-400) K/mcL Neutrophils # 8.4 (1.6-8.9) K/mcL BMP 12/01/18 04:22 Sodium 139 Potassium 3.9 Chloride 101 Carbon Dioxide 31 H BUN 30 H Creatinine 0.70 Glucose 125 H Calcium 9.1 - ABG Interpretation ABG results: ABG ABG pH 7.45 pH Units (7.32-7.45) 11/29/18 15:33 ABG pCO2 49 mmHg (35-45) H 11/29/18 15:33 ABG pO2 79 mmHg (85-104) L 11/29/18 15:33 ABG O2 Saturation 96 % (95-98) 11/29/18 15:33 Consult Discharge Plan - Plan Instructions: Diabetes Mellitus Type 2 in Adults (DC), Acute Bronchitis (DC), Chronic Obstructive Pulmonary Disease (DC) Referrals: Shlomo Rosado MD [Primary Care Provider] - 12/10/18 9:30 am
[2018-12-02] MEDS: Ipratropium/Albuterol Neb 3 ML IH SCH ×3 (00:32→07:29)
[2018-12-02 03:47] VITALS: BP 117/78
[2018-12-02 04:53] LABS: Basophils % 0.4 %; Eosinophils % 0.1 %; Hematocrit 47.6 % (35.3-44.9); Hemoglobin 16.1 g/dL (11.5-15.4); Immature Granulocytes % 2.3 % (0-4); Lymphocytes # 1.6 K/mcL (0.6-4.6); Lymphocytes % 15.1 %; Mean Corpuscular HGB Conc 33.8 g/dL (31.6-35.5); Mean Corpuscular Hemoglobin 32.1 pg (28.0-33.3); Mean Platelet Volume 9.5 fL (9.4-12.4); Monocytes # 0.7 K/mcL (0.0-1.3); Monocytes % 6.9 %; Neutrophils # 7.9 K/mcL (1.6-8.9); Platelet Count 193 K/mcL (140-400); Red Blood Count 5.01 M/mcL (3.82-4.97); Red Cell Distribution Width 11.9 % (11.5-14.5); Segmented Neutrophils % 75.2 %
[2018-12-02 05:10] LABS: BUN/Creatinine Ratio 49 (6-26); Blood Urea Nitrogen 33 mg/dL (6-20); Calcium 9.3 mg/dL (8.6-10.3); Carbon Dioxide 32 mEq/L (23-29); Chloride 101 mEq/L (98-107); Glucose 136 mg/dL (70-105); Magnesium 2.3 mg/dL (1.6-2.6); Osmolality,Calculated 301 (280-300); Phosphorous 3.8 mg/dL (2.7-4.5); Potassium 3.5 mEq/L (3.5-5.1); Sodium 141 mEq/L (136-145); eGFR For Non-African Americans > 60 (> 60)
[2018-12-02] MEDS: *HR* Enoxaparin 40 MG/0.4 ML SYRINGE SQ SCH (06:10)
[2018-12-02] MEDS: Budesonide/Formoterol 160/4.5 1 PUFF INH IH SCH (07:30)
[2018-12-02] MEDS ORDERED: predniSONE 20 MG TABLET PO SCH (09:00)
[2018-12-02] MEDS: Insulin LISPRO 300 UNITS/3 ML VIAL SQ SCH (09:31)
[2018-12-02] MEDS: Lactobacillus 1 EACH CAP.SPRINK PO SCH (09:35)
[2018-12-02] MEDS: hydroCHLOROthiazide 25 MG TABLET PO SCH (09:35)
--- NOTE | 2018-12-02 09:57 | Discharge Summary ---
- NOTES TO OUTPATIENT PROVIDER Notes to Outpatient Provider: Pt readmitted for COPD exacerbation. Please re- evaluate patient's inhalers. Consider adding a inhaled corticosteroid to her regimen. Pt is also noted to be on chronic systemic steroid therapy since March 2018. Extensive smoking cessation counseling was provided to the patient prior to discharge. Orders not resulted at time of discharge: Pending orders 11/29/18 12:06 Bedside Spirometry Evaluation [EVAL] Routine Date of Encounter: 12/02/18 Time of Encounter: 09:53 - Discharge Diagnosis (1) Acute exacerbation of chronic obstructive airways disease Priority: Primary Status: Acute Hospital course: Ms. Hernandez is a 48 year old female with PMH of COPD on home oxygen (2L), tobacco abuse, DM type 2, HTN who was admitted for acute exacerbation of COPD and was positive for human metapneumovirus. Pt was started on IV steroids, bronchodilator support, and bipap support. Pt responded well to this therapy. She was also evaluated by pulmonology during this hospitalization. Pt was slowly titrated down to her baseline oxygen levels and is currently saturating well on 2L [place]. Her steroid therapy was slowly titrated down as well and is started on Prednisone this morning. She is back to her baseline respiratory status and medically stable for discharge to home with outpatient follow up with PCP and pulmonology. Pt was seen and examined with present at bedside on the day of discharge. All questions were answered. Extensive smoking cessation counseling was provided. Discharge discussed with: patient, family, nurse, case management Time spent discussing smoking cessation with patient: 3 to 10 minutes - Time Spent with Patient Total time spent providing and/or coordinating discharge services: 35 minutes Time spent: Greater than 30 minutes - Discharge Medications Prescriptions: New predniSONE [PredniSONE] 40 mg PO DAILY #4 tablet Continue Montelukast [Singulair] 10 mg PO DAILY Hydrochlorothiazide [Microzide] 12.5 mg PO DAILY Albuterol Neb [Proventil Neb] 2.5 mg IH Q6H PRN PRN Reason: sob/wheezing hydrOXYzine pamoate [HydrOXYzine Pamoate] 25 mg PO Q6H PRN PRN Reason: Anxiety Temazepam [Restoril] 30 mg PO HS PRN PRN Reason: Sleep Tiotropium Br/Olodaterol HCl [Stiolto Respimat Inhal [place]] 2 puff IH DAILY Lactobacillus [Culturelle] 1 each PO BID #6 cap.sprink predniSONE [PredniSONE] 10 mg PO BIDWM #6 tablet Discontinued Budesonide/Formoterol 160/4.5 [Symbicort 160/4.5] 2 puff IH BIDR #1 inh levoFLOXacin [Levaquin] 750 mg PO DAILY #3 tablet Home Medications: Montelukast [Singulair] 10 mg PO DAILY 06/06/16 [History] Hydrochlorothiazide [Microzide] 12.5 mg PO DAILY 11/22/18 [History] Lactobacillus [Culturelle] 1 each PO BID #6 cap.sprink 11/27/18 [Rx] predniSONE [PredniSONE] 10 mg PO BIDWM #6 tablet 11/27/18 [Rx] Albuterol Neb [Proventil Neb] 2.5 mg IH Q6H PRN 11/28/18 [History] Temazepam [Restoril] 30 mg PO HS PRN 11/28/18 [History] Tiotropium Br/Olodaterol HCl [Stiolto Respimat Inhal [place]] 2 puff IH DAILY 11/28/18 [History] hydrOXYzine pamoate [HydrOXYzine Pamoate] 25 mg PO Q6H PRN 11/28/18 [History] predniSONE [PredniSONE] 40 mg PO DAILY #4 tablet 12/02/18 [Rx] Allergies/Adverse Reactions: Allergy/AdvReac Type Severity Reaction Status Date / Time No Known Allergies Allergy Verified 11/23/18 23:19 Date of admission: 11/28/18 14:02 Primary care physician: Shlomo Rosado MD Consults: 11/29/18 09:09 Consult to Nurse Navigator [CONS] Routine Comment: COPD 11/29/18 12:56 Consult to Pulmonology [CONS] Routine Consulting Provider: [facility] Reason for Consult: COPD exacerbation, never had pulmonary evaluation Call Completed: Yes Discharging clinician: Roselia Murdock Anticipated date of discharge: 12/02/18 - Constitutional Vitals: Temp Pulse Resp BP Pulse Ox 98.3 F 90 18 117/78 98 12/02/18 03:10 12/02/18 03:10 12/02/18 07:30 12/02/18 03:10 12/02/18 07:30 Exam: General: No acute distress, AAO x 3 HEENT: EOMI,PERRLA, NC/AT, no scleral icterus, moist oral mucosa Respiratory: Equal air entry bilaterally, no wheezing, no rales Cardiovascular: Regular, Rate, Rhythm, No murmurs GI: Soft, Non tender, non distended, normal bowel sounds Ext: No edema, no tenderness, positive pulses Neuro: AAO x 3, no focal deficits - Patient Status Disposition: Home, Self-Care Functional capacity at discharge: independent ambulation Overall status at discharge: patient is back to baseline - Discharge Instructions Instructions: Diabetes Mellitus Type 2 in Adults (DC), Acute Bronchitis (DC), Chronic Obstructive Pulmonary Disease (DC) Follow Up With: Shlomo Rosado MD [Primary Care Provider] - 12/10/18 9:30 am Forms: ED Satisfaction Letter Additional Instructions: Please follow up with your primary care physician and juvenile counselor within five days after your discharge from the hospital. Your home medications have been changed as follows: -Prednisone 40mg once a day is added for four more days, followed by continuation of Prednisone 10mg twice a day, as prescribed by your primary care physician. -Symbicort is discontinued. Please ask your juvenile counselor about starting inhaled corticosteroids. Resume all your home medications as prescribed by your primary care physician. Smoking cessation is advised Please seek medical help immediately if you have difficulty breathing. - Diet and Activity Activity: resume usual activities as tolerated, wear oxygen at all times, wear oxygen at night Diet: diabetic diet, low fat, low cholesterol, low salt diet
== END 2018-12-02 10:27 | disposition home or self-care (01) | DRG 190 ==
LOC: EMEROOARM 09:36 → 2NNU 14:02 → SUATTDRO 14:02 → 2NNU 16:07 → 2ANU 11-30 20:38
PROVIDERS: ADMIT Internal Medicine; ATTEND Internal Medicine